=== PATIENT | male | born 1940 | race American Indian/Alaskan Native ===

== ENCOUNTER 2016-08-19 09:35 | Emergency (ER) | payer MEDICARE, OTHER ==
[~2016-08-19 09:35] MED LIST: ALTACE10 MG PO; AMARYL4 PO; ASAB PO; ATACAND16 PO; COQ10100 MG PO; COREG12 PO; CRESTOR40 MG PO; FOLIC PO; GLUCOPHAGE1000 MG PO; JANUVIA100 MG PO; NITROSTAT0.4 MG SL; PLAVIX PO; TOPXL50 PO; VANTIN200 MG PO; VITAMIN B-121000 MC1 SL; ZITHROMAX500 MG PO
[2017-01-20] MEDS ORDERED: LANTUSCART SC (09:26)
[2017-01-21] MEDS ORDERED: ULTRAM50 PO (15:49)
== END 2016-08-19 10:30 | disposition home or self-care (01) ==
LOC: ER 09:35
DX: S29.012A Strain of muscle and tendon of back wall of thorax, initial encounter (principal); Z95.1 Presence of aortocoronary bypass graft; Z95.5 Presence of coronary angioplasty implant and graft; I10 Essential (primary) hypertension; E11.9 Type 2 diabetes mellitus without complications; Z88.8 Allergy status to other drugs, medicaments and biological substances; Z79.899 Other long term (current) drug therapy; Z79.82 Long term (current) use of aspirin; V89.9XXA Person injured in unspecified vehicle accident, initial encounter
CPT/HCPCS: 72072; 99283; A9270-GY